=== PATIENT | male | born 1980 | race Caucasian/White ===

== ENCOUNTER 2023-04-18 09:07 | Day surgery (SDC) | payer BC, OTHER ==
[~2023-04-18 09:07] MED LIST: Lactated Ringers 1,000 ML IV SCH; Sodium Chloride 0.9% 10 ML Syringe FLUSH PRN; Sodium Chloride 0.9% 10 ML Syringe FLUSH SCH
[2023-04-18] MEDS ORDERED: Midazolam 1 MG/ML 2 ML SDV ONE (09:51)
[2023-04-18] MEDS ORDERED: Propofol 200 MG/20 ML SDV ONE (09:51)
[2023-04-18] MEDS ORDERED: Bupivacaine 0.5% 30 ML SDV ONE (10:06)
[2023-04-18] MEDS ORDERED: Ketorolac 15 MG/ML SDV ONE (11:52)
[2023-04-18 13:30] VITALS: BP 140/105; PULSE 56
== END 2023-04-18 13:11 | disposition home or self-care (01) ==
LOC: JD.SDS 09:07
PROVIDERS: ATTEND Surgery
DX: K63.5 Polyp of colon (principal); K63.89 Other specified diseases of intestine; K62.89 Other specified diseases of anus and rectum; K64.8 Other hemorrhoids; K64.4 Residual hemorrhoidal skin tags; I10 Essential (primary) hypertension; Z87.891 Personal history of nicotine dependence
CPT/HCPCS: 45380; 46221; J1885; J2250; J2704; J3490; J7120; 00811